=== PATIENT | male | born 1955 | race Caucasian/White ===

== ENCOUNTER 2024-03-18 13:13 | Emergency (ER) | payer MEDICARE, OTHER, SELFPAY ==
[2024-03-18 13:15] VITALS: BP 165/98
--- NOTE | 2024-03-18 13:36 | ED.GENMED ---
History of Present Illness
General
Chief Complaint: Abdominal Pain
Source: patient
Time Seen by Provider: 03/18/24 13:26
History of Present Illness
History of Present Illness:
68yoM with a history of BPH presenting with his for evaluation of urinary retention. Patient has been unable to urinate since last night. He is presenting with significant pain in his suprapubic region. He thought he may be constipated so he
did a saline enema without relief. He denies any fevers or vomiting. He has a history of urinary retention requiring Reina catheter once in the past. He follows with Dr. Hutn.
Past History
Past History
ED Past Medical History: HTN, Hypercholesterolemia and Other (BPH)
ED Past Surgical History: Orthopedic (left knee meniscus repair)
Social History
Tobacco: Non-smoker
Alcohol: Occasional
Drug: None
Personal:
Living: with family
Employment: Employed
Phy Exam
Physical Exam
Physical Exam:
Appears uncomfortable due to pain, non-toxic
General Physical Exam
General Presentation: well appearing and moderate distress
General Skin: warm and dry
General Habitus: normal
ENT Exam
ENT Exam: normocephalic
Pulmonary Exam
Pulmonary Exam: no respiratory distress
Gastrointestinal Exam
Gastrointestinal Exam: soft and other (+Suprapubic tenderness with palpable bladder)
[place] Coma Scale
Eye Opening: Spontaneous
Verbal Response: Oriented
Motor Response: Obeys Commands
GCS Total Score: 15
Skin Exam
Skin Exam: normal color and warm/dry
Psychiatric Exam
Psychiatric Exam: normal mood/affect
Course
Orders/Labs/Results
Orders:
Orders
03/18/24 13:26
Bladder Scan- Treatment ONCE
03/18/24 13:27
Lidocaine 2% [Lidocaine Uro-Jet 2%] 1 syringe .ROUTE .[facility]
03/18/24 13:34
Reina Placement- Treatment ONCE
Reason for insertion: Acute Retention
03/18/24 13:50
Urinalysis Reflex To Culture Urgent
Date Specimen was Collected: 03/18/24
Time Specimen was Collected: 13:45
Urine Microscopic Reflex Cult Urgent
Abnormal Lab Results
03/18/24
13:50
Ur Occult Blood Reflex 2+ A
(Negative)
Urine RBC 40-50 A /HPF
(0-2)
Urine Bacteria (Reflex) Few A
(Negative)
Vital Signs
Initial and Last Documented VS:
Initial Vital Signs
Temp Pulse Resp BP Pulse Ox
98.2 F 98 18 165/98 102
03/18/24 13:15 03/18/24 13:15 03/18/24 13:15 03/18/24 13:15 03/18/24 13:15
Last Documented Vital Signs
Temp Pulse Resp BP Pulse Ox
98.2 F 98 18 165/98 102
03/18/24 13:15 03/18/24 13:15 03/18/24 13:15 03/18/24 13:15 03/18/24 13:15
MDM/Problems Addressed
Differential Diagnosis Includes:
68yoM here with acute urinary retention. Hx of BPH. No urination since last night. C/o suprapubic pain. VSS. He appears uncomfortable and there is a palpable bladder on exam. Differential diagnosis includes but is not limited to: urinary retention,
BPH, UTI, constipation
Initial ED plan: Bladder scan >800cc. Reina catheter ordered.
*Critical Care Note
Total Time (30-74mins, 75-104mins- exclusive of procedures): Not Applicable
Update Note
Update Note:
Reina catheter placed by nursing staff with immediate return of 1L urine. Patient's symptoms resolved after catheter placement. UA with 2+ blood but no signs of infection. He is stable for discharge. Patient admits to not taking his Flomax
consistently. He was advised to f/u with his urologist for catheter removal. ED return precautions discussed. He was discharged in stable condition.
ED Attending Note
-
Portions of this chart may have been created with voice recognition software.� Occasional wrong word or��sound alike� substitutions may have occurred due to the inherent limitations of voice recognition software.
Discharge Plan
Departure
Patient Disposition: Home (Routine Discharge)
Date of Disposition: 03/18/24
Time of Disposition: 14:34
Patient with high blood pressure during this ER visit?: Yes
Discharge Problem:
Acute urinary retention
Instructions: How to Care for Your Reina Catheter, Male, Urinary retention - Discharge instructions
Referrals:
iGl Arguello MD [Active] -
Renata Mack CRNP [Family Provider] -
Activity Restrictions/Additional Instructions:
Take Flomax consistently.
Please call your urologist tomorrow to schedule catheter removal in 1 week.
Return to the ER with any worsening symptoms or if your catheter stops draining.
Interventions
Interventions:
*Risk Screen - Suicide Last Done: 03/18/24 13:15
*General Assessment Last Done: 03/18/24 13:15
*Neglect/Abuse Screening Last Done: 03/18/24 13:25
ED- Fall Risk Assessment Last Done: 03/18/24 13:25
*ED COVID-19 Vaccine History Last Done: 03/18/24 13:25
*Nursing Disposition Last Done: 03/18/24 14:50
JT-Dxxhov-Unrmslszkd Assessment Last Done: 03/18/24 13:25
Discharge Date and Time
Discharge Date/Time: 03/18/24 14:50
Print Language: BELARUSIAN
[2024-03-18 14:10] LABS: Urine Albumin Negative (Neg - Trace); Urine Bilirubin Negative (Negative); Urine Character Slightly Cloudy (Clear); Urine Color Yellow; Urine Glucose Negative (Negative); Urine Ketone Negative (Negative); Urine Leukocyte Negative (Negative); Urine Nitrite Negative (Negative); Urine Occult Blood 2+ (Negative); Urine Specific Gravity 1.015 (<1.030); Urine Urobilinogen Negative (Neg - 1+)
[2024-03-18 14:28] LABS: Urine Bacteria Few (Negative); Urine Red Blood Cell 40-50 /HPF (0-2); Urine White Cell 0-2 /HPF (0-5)
== END 2024-03-18 14:50 | disposition home or self-care (01) ==
LOC: EMR 13:13
PROVIDERS: Physician Assistant; EMERGENCY PHYSICIAN Student in an Organized Health Care Education/Training Program; FAMILY PHYSICIAN Nurse Practitioner
DX: N40.1 Benign prostatic hyperplasia with lower urinary tract symptoms (principal); R33.8 Other retention of urine; E78.00 Pure hypercholesterolemia, unspecified; I10 Essential (primary) hypertension
CPT/HCPCS: 51702; 99283; 81003; 81015

== ENCOUNTER → 2024-04-23 07:27 | Outpatient (REF) | payer MEDICARE, OTHER, SELFPAY ==
[2024-04-23 08:47] LABS: Hematocrit 36.2 % (39.0-52.0); Hemoglobin 11.1 g/dL (13.0-18.0); Mean Corp Hgb Conc. 30.7 g/dL (33.0-37.0); Mean Corpuscular Hgb 24.6 pg (27.0-31.0); Mean Corpuscular Volume 80.3 fL (80.0-94.0); Mean Platelet Volume 11.2 fL (7.4-10.4); Platelet Count 243 10^3/uL (130-400); Red Blood Cell Count 4.51 10^6/uL (4.70-6.10); Red Cell Dist. Width 14.3 % (11.5-14.5); White Blood Cell Count 6.2 10^3/uL (4.8-10.8)
[2024-04-23 09:18] LABS: Blood Urea Nitrogen 19 mg/dl (9-20); Calcium 8.9 mg/dl (8.4-10.2); Carbon Dioxide 28 mmol/L (22-30); Chloride 103 mmol/L (98-107); Glucose 94 mg/dl (70-99); Potassium 3.9 mmol/L (3.5-5.1); Sodium 139 mmol/L (135-145); eGFR > 60.00
== END ==
LOC: SDSPAT 07:27
PROVIDERS: ATTENDING PHYSICIAN Surgery; FAMILY PHYSICIAN Nurse Practitioner
DX: Z01.810 Encounter for preprocedural cardiovascular examination (principal); Z01.812 Encounter for preprocedural laboratory examination
CPT/HCPCS: 36415; 80048; 85027; 93005

== ENCOUNTER → 2025-01-25 08:51 | Outpatient (REF) | payer MEDICARE, OTHER, SELFPAY | LOC: HWRAD 08:51 | PROVIDERS: ATTENDING PHYSICIAN Internal Medicine Cardiovascular Disease; FAMILY PHYSICIAN Nurse Practitioner | DX: R06.02 Shortness of breath (principal); Z82.49 Family history of ischemic heart disease and other diseases of the circulatory system | CPT/HCPCS: 75571 ==

== ENCOUNTER → 2025-01-30 07:27 | Outpatient (REF) | payer MEDICARE, OTHER, SELFPAY | LOC: RCS 07:27 | PROVIDERS: ATTENDING PHYSICIAN Internal Medicine Cardiovascular Disease; FAMILY PHYSICIAN Nurse Practitioner | DX: R06.02 Shortness of breath (principal); Z82.49 Family history of ischemic heart disease and other diseases of the circulatory system; E78.5 Hyperlipidemia, unspecified | CPT/HCPCS: 93306 ==

== ENCOUNTER → 2025-02-04 08:17 | Outpatient (REF) | payer MEDICARE, OTHER, SELFPAY | LOC: RCS 08:17 | PROVIDERS: ATTENDING PHYSICIAN Internal Medicine Cardiovascular Disease; FAMILY PHYSICIAN Nurse Practitioner | DX: R06.02 Shortness of breath (principal); Z82.49 Family history of ischemic heart disease and other diseases of the circulatory system; E78.5 Hyperlipidemia, unspecified | CPT/HCPCS: 93017; 93350; Q9950 ==